=== PATIENT | female | born 1990 | race African-American/Black ===

== ENCOUNTER 2018-08-31 05:32 | Emergency (ER) | payer SELFPAY ==
[~2018-08-31] VITALS: Ht 172.7 cm; Wt 63.0 kg
[2018-08-31 06:10] VITALS: BP 148/89
== END 2018-08-31 06:50 | disposition left against medical advice (07) ==
LOC: ER 05:32
DX: F15.10 Other stimulant abuse, uncomplicated (principal); R41.82 Altered mental status, unspecified; F20.9 Schizophrenia, unspecified; F31.9 Bipolar disorder, unspecified; J45.909 Unspecified asthma, uncomplicated; R56.9 Unspecified convulsions
CPT/HCPCS: 81025; 99284

== ENCOUNTER 2020-06-11 09:18 | Emergency (ER) | payer MEDICAID, OTHER ==
[~2020-06-11] VITALS: Ht 167.6 cm; Wt 61.0 kg
[2020-06-11] MEDS ORDERED: KETOROLAC 30MG/ML VIAL IV ONE (09:45)
[2020-06-11 10:02] LABS: BASOPHILS % 0.2 % (0.0-2.0); EOSINOPHILS % 0.5 % (0.0-5.0); HEMATOCRIT. 30.2 % (36.0-48.0); HEMOGLOBIN. 9.2 g/dL (12.0-16.0); LYMPHOCYTES % 15.8 % (20.0-50.0); MEAN CORPUSCULAR VOLUME 72.3 fL (81.0-99.0); MEAN PLATELET VOLUME 7.4 fl (7.4-10.4); MONOCYTES % 4.9 % (2.0-8.0); NEUTROPHILS % 78.6 % (40.0-76.0); PLATELET 478 x1000/uL (130-400); RED BLOOD CELL COUNT 4.18 mill/uL (4.2-5.4); RED CELL DISTRIBUTION WIDTH 18.2 % (11.6-14.6)
[2020-06-11 10:04] LABS: CHLORIDE 104 mEq/L (98-107)
[2020-06-11 10:06] LABS: PROTHROMBIN TIME 10.7 sec (9.6-11.0)
[2020-06-11 10:32] LABS: HCG SCREEN NEGATIVE
[2020-06-11] MEDS ORDERED: POLY119P2 PO (13:06)
[2020-06-11 17:18] VITALS: BP 120/84
== END 2020-06-11 18:46 | disposition home or self-care (01) ==
LOC: ER 09:18
DX: F14.129 Cocaine abuse with intoxication, unspecified (principal); F15.10 Other stimulant abuse, uncomplicated
CPT/HCPCS: 36415; 74176; 76856; 80053; 83690; 84703; 85025; 85610; 93005; 96374; 99285; J1885